=== PATIENT | female | born 1990 | race Two or more races ===

== ENCOUNTER 2017-01-06 07:20 | Emergency (ER) | payer MEDICAID ==
[~2017-01-06] VITALS: Ht 170.2 cm; Wt 65.8 kg
--- NOTE | 2017-01-06 07:30 | NUR ---
AAOX3, CAME TO ER C/O VAGINAL DISCHARGE X CREAMY WHITE IN COLOR NOTICED THIS AM. PATIENT STATES THAT SHE HAD AN UNPROTECTED SEX LAST NIGHT. SKIN IS WARM AND DRY. RESP IS EVEN AND UNLABORED WITH NAD NOTED. AWAITING MD FOR EVAL.
[2017-01-06] MEDS ORDERED: AZITHROMYCIN 250 MG TABLET PO ONE (08:00)
[2017-01-06] MEDS ORDERED: FLUCONAZOLE (100 MG) 100 MG TABLET PO ONE (08:00)
[2017-01-06] MEDS ORDERED: CEFTRIAXONE 500 MG VIAL ONE (08:00)
[2017-01-06] MEDS ORDERED: CEFTRIAXONE 1 G VIAL IM ONE (08:00)
[2017-01-06] MEDS ORDERED: AZITHROMYCIN 250 MG TABLET ONE (08:01)
[2017-01-06] MEDS ORDERED: FLUCONAZOLE (100 MG) 100 MG TABLET ONE (08:01)
[2017-01-06] MEDS ORDERED: LIDOCAINE /MPF 1% VIAL 5 ML VIAL ONE (08:02)
--- NOTE | 2017-01-06 08:15 | NUR ---
Patient discharged to home in stable condition. Written and verbal after care instructions given. Patient verbalizes understanding of instruction.
[2017-01-06 08:21] VITALS: BP 138/85
== END 2017-01-06 08:22 | disposition home or self-care (01) ==
LOC: ER 07:23
DX: N89.8 Other specified noninflammatory disorders of vagina (principal)
CPT/HCPCS: 87491; 87591; A4606; J0696; J3490; Z7610

== ENCOUNTER 2017-05-13 04:49 | Emergency (ER) | payer OTHER ==
[~2017-05-13] VITALS: Ht 167.6 cm; Wt 63.5 kg
[2017-05-13 05:00] VITALS: BP 138/77
== END 2017-05-13 06:33 | disposition home or self-care (01) ==
LOC: ER 04:49
DX: L03.211 Cellulitis of face (principal); F17.200 Nicotine dependence, unspecified, uncomplicated
CPT/HCPCS: A4606; Z7610